=== PATIENT | female | born 1995 | race Caucasian/White ===

== ENCOUNTER 2023-04-29 13:25 | Emergency (ER) | payer SELFPAY ==
[2023-04-29 14:33] VITALS: BP 125/62; PULSE 91; RESP 19; TEMP 36.6; O2SAT 99; BMI 26.2
--- NOTE | 2023-04-29 14:49 | ECG_ITS ---
Test Reason : HAND NUMBNESS Blood Pressure : / mmHG Vent. Rate : 082 BPM Atrial Rate : 082 BPM P-R Int : 142 ms QRS Dur : 080 ms QT Int : 372 ms P-R-T Axes : 066 047 041 degrees QTc Int : 434 ms Normal sinus rhythm with sinus arrhythmia Possible Left atrial enlargement RSR' or QR pattern in V1 suggests right ventricular conduction delay Abnormal ECG No previous ECGs available Referred By: Cecilia Crews Electronically Signed By:YEVGENIY PEREZ MD
[2023-04-29 15:46] LABS: MANUAL DIFF FLAG NO
[2023-04-29 15:49] LABS: Basophils Percent Auto 0.7 % (0-2); Eosinophils Percent Auto 0.3 % (0-4); Hematocrit 40.7 % (37.0-47.0); Hemoglobin 13.7 g/dl (12.0-16.0); Imm Gran Abs Auto 0.01 X10*3/uL (0.00-0.03); Imm Gran Pct Auto 0.2 % (0.0-0.4); Lymphocytes Absolute Auto 1.3 X10*3/uL (1.2-4.9); Lymphocytes Percent Auto 22.6 % (20-40); Mean Corpuscular HGB Conc 33.7 g/dl (31.0-35.0); Mean Corpuscular Hemoglobin 29.7 pg (27.0-33.0); Mean Corpuscular Volume 88.1 fL (80.0-98.0); Mean Platelet Volume 9.9 fL (9.4-12.3); Monocytes Absolute Auto 0.3 X10*3/uL (0.1-1.2); Monocytes Percent Auto 4.6 % (2-11); Neutrophils Absolute Auto 4.3 x10*3/uL (2.0-8.3); Neutrophils Percent Auto 71.6 % (45-73); Platelet Count 288 X10*3/uL (160-400); Red Blood Count 4.62 X10*6/uL (4.20-5.50); Red Cell Distribution Width 12.4 % (11.0-16.0); White Blood Count 5.9 X10*3/uL (4.8-10.8)
[2023-04-29 16:09] LABS: Alanine Aminotransferase 9 U/L (0-31); Albumin Level 4.8 g/dL (3.5-5.0); Alkaline Phosphatase 41 U/L (39-117); Anion Gap 15 (12-20); Aspartate Amino Transferase 16 U/L (5-31); Bilirubin Direct 0.1 mg/dL (0.0-0.5); Bilirubin Total 0.4 mg/dL (0.0-1.0); Blood Urea Nitrogen 11 mg/dL (9-16); Carbon Dioxide 21 mmol/L (22-29); Chloride 109 mmol/L (96-108); Creatinine Clr Calc Pharmacy 95.4; Estimated Glomerular Filt Rate > 60; Glucose Random 109 mg/dL (60-115); Magnesium 2.3 mg/dL (1.6-2.6); Potassium 4.1 mmol/L (3.3-5.1); Sodium 141 mmol/L (135-145); Total Protein 7.5 g/dL (6.5-8.0)
[2023-04-29 16:24] LABS: TSH reflex Free T4 0.98 uIU/mL (0.32-4.0)
[2023-04-29 19:19] VITALS: BP 135/68; PULSE 86; RESP 16; TEMP 36.7; O2SAT 98
[2023-04-29 22:25] VITALS: BP 114/67; PULSE 56; RESP 14; TEMP 36.8; O2SAT 100
--- NOTE | 2023-04-29 22:28 | ED_ITS ---
HPI - General Adult General Chief complaint: General Medical Stated complaint: Hand Arm Numbness No Injury Time Seen by Provider: 04/29/23 21:07 Source: patient Mode of arrival: ambulatory History of Present Illness HPI narrative: 27-year-old female who presents with onset of all of the fingers of her left hand being numb on , this is not been associated with any fever/chills/trauma/redness or swelling and she denies any IVDA. Patient states that since the numbness has progressed in in ascending manner up through her forearm and she reports it is now at her elbow, she then states that associated with this is some mild weakness and decreased motor function. She states that on Thursday she began having the numbness in her left toes which has now progressed in an ascending matter up to the knee level to the point that she feels like her leg is going to give out if she is walking up and down stairs. Patient denies any use of alcohol or other medical problems and does not take any prescribed medications at this time. She denies any family history of neurologic disorders and denies any viral illnesses within the past month. She denies any bowel or bladder dysfunction or numbness within the groin area. Patient states that she has also had some numbness that she notes to the left side of her face that started today and also describes some perioral tingling but denies any visual changes. She does not endorse that she has had the toe numbness approximately 1 year ago but then it spontaneously resolved. Related Data Allergies Allergy/AdvReac Type Severity Reaction Status Date / Time No Known Allergies Allergy Verified 04/29/23 14:30 Review of Systems 2 Review of Systems: Pertinent positives and negatives as stated in HPI [facility] Past Medical History Source: nursing notes reviewed Social History Social History Advance Directives: No Advance Directives Information Provided: No Physical Exam ED Vital Signs: Vital Signs - 24 hr 04/29/23 14:33 04/29/23 19:19 04/29/23 22:25 Temperature 98 F 98.0 F 98.2 F Pulse Rate 91 86 56 Respiratory Rate 19 16 14 Blood Pressure 125/62 135/68 114/67 Pulse Oximetry 99 98 100 Oxygen Delivery Method Room Air Room Air Room Air BMI result Body Mass Index 26.2 VITAL SIGNS: Reviewed. GENERAL: Well developed, well nourished, in no acute distress. HEAD: Normocephalic/atraumatic EYES: PERRLA, EOMI intact without pain, no nystagmus/pallor/icterus noted EARS: Ext canals without abnormality, TMs non-bulging and non-erythematous NOSE: Nares patent bilateral OROPHARYNX: no oral lesions noted, posterior pharynx clear and non-erythematous without noted tonsillar enlargement/erythema/exudates NECK: Supple, no adenopathy LUNGS: Normal breath sounds. No adventitious sounds or accessory muscle use. SpO2<100> CARDIOVASCULAR: Regular rate and rhythm without noted murmurs ABDOMEN: Soft, non-tender, non-distended with bowel sounds. MUSCULOSKELETAL: No tenderness, deformities, or effusions noted on gross inspection. EXTREMITIES: No cyanosis, clubbing or edema. There is no noted erythema or induration to either the left lower or left upper extremity. There are no noted deformities or evidence of any skin breaks, there are no color changes to either extremity, they are both warm with palpable pulses and good capillary refill. There is full range of motion at all joints. There is no swelling. SKIN: Inspection of the skin reveals no rashes NEUROLOGIC: Alert and oriented x 4. Strength and sensation to light touch were grossly intact x 4, no facial asymmetry, DTRs are brisk and intact and symmetrical, left hand asphalt blender was noted to be less than right hand asphalt blender, cranial nerves 2-12 are grossly intact. Medical Decision Making Medical Decision Making MDM Narrative: 27-year-old female with history and clinical presentation, DDX: Viral illness, anxiety, MS. There is no discrete dermatomal level to suggest a radiculopathy and the sock and glove description that patient provides could suggest some form of other neuropathy but the timing and description that patient has provided is inconsistent with a classic Guillain-[place]/ALS. I reviewed all investigations and hematologic indices are negative for any leukocytosis/left shift, there is no anemia or thrombocytopenia, ESR is negligible. Chemistry indices are negative for LIANG and there is no electrolyte or liver enzyme abnormalities. CRP is negligible, procalcitonin is undetectable, TSH is within normal limits. The absence of elevated inflammatory markers or any derangements and in the lab work with intact DTRs it is difficult for me to invoke an acute neurologic emergency. There is no evidence to suggest a cauda equina. I will provide the patient with a referral to Neurology and instruct her to call 1st thing in the morning to see if she can be further evaluated [place] [facility] There is no indication for acute MRI evaluation. Differential Diagnosis Differential Diagnoses: The differential diagnosis associated with the presentation includes Please see the discussion above Admission/Observation Consideration of admission/observation: Escalation of care including admission/observation considered Please see the discussion above Lab Data MDM Lab Attestation statement: I reviewed the patient's lab results. Please see the discussion above 04/29/23 15:38 04/29/23 15:38 Labs: Lab Results 04/29/23 04/29/23 Range/Units 15:38 22:44 WBC 5.9 (4.8-10.8) X10*3/uL RBC 4.62 (4.20-5.50) X10*6/uL Hgb 13.7 (12.0-16.0) g/dl Hct 40.7 (37.0-47.0) % MCV 88.1 (80.0-98.0) fL MCH 29.7 (27.0-33.0) pg MCHC 33.7 (31.0-35.0) g/dl RDW 12.4 (11.0-16.0) % Plt Count 288 (160-400) X10*3/uL MPV 9.9 (9.4-12.3) fL Immature Gran % (Auto) 0.2 (0.0-0.4) % Neut % (Auto) 71.6 (45-73) % Lymph % (Auto) 22.6 (20-40) % Toole % (Auto) 4.6 (2-11) % Eos % (Auto) 0.3 (0-4) % Baso % (Auto) 0.7 (0-2) % Lymph # (Auto) 1.3 (1.2-4.9) X10*3/uL Toole # (Auto) 0.3 (0.1-1.2) X10*3/uL Eos # (Auto) 0.0 (0.0-0.4) X10*3/uL Baso # (Auto) 0.0 (0.0-0.2) X10*3/uL Abs Immat Gran (auto) 0.01 (0.00-0.03) X10*3/uL Absolute Neuts (auto) 4.3 (2.0-8.3) x10*3/uL Absolute Nucleated RBC 0.000 (0.0-0.012) X10*3/uL Nucleated RBC % (auto) 0.0 (0.0-0.2) /100WBC ESR 2 (0-20) MM/HR Sodium 141 (135-145) mmol/L Potassium 4.1 (3.3-5.1) mmol/L Chloride 109 H (96-108) mmol/L Carbon Dioxide 21 L (22-29) mmol/L Anion Gap 15 (12-20) BUN 11 (9-16) mg/dL Creatinine 0.77 (0.5-1.4) mg/dL Estim Creat Clear Calc 95.4 Estimated GFR > 60 Random Glucose 109 (60-115) mg/dL Calcium 10.0 (8.4-10.2) mg/dL Magnesium 2.3 (1.6-2.6) mg/dL Total Bilirubin 0.4 (0.0-1.0) mg/dL Direct Bilirubin 0.1 (0.0-0.5) mg/dL AST 16 (5-31) U/L ALT 9 (0-31) U/L Alkaline Phosphatase 41 (39-117) U/L C-Reactive Protein 0.10 (< or = 0.50) mg/dL Total Protein 7.5 (6.5-8.0) g/dL Albumin 4.8 (3.5-5.0) g/dL Procalcitonin < 0.02 ng/mL TSH 0.98 (0.32-4.0) uIU/mL Urine Color Yellow Urine Appearance Clear Urine pH 5.5 (5.0-9.0) Ur Specific Agenda 1.020 (1.005-1.025) Urine Protein Negative (Neg-Trace) mg/dL Urine Glucose (UA) Negative (Negative) mg/dL Urine Ketones 15 (Negative) mg/dL Urine Blood Moderate (2+) H (Negative) Urine Nitrite Negative (Negative) Ur Leukocyte Esterase Negative (Negative) Urine RBC 11-20 H (0-2) /HPF Urine WBC 0-5 (0-5) /HPF Ur Squamous Epith Cells 0-2 (0-2) /HPF Urine Bacteria None Seen (None Seen) Hyaline Casts 0-2 (0-2) /LPF Independent Interpretation I performed an independent interpretation of an: EKG Interpretation: Normal sinus rhythm, HR-82, no STEMI, GA/QRS/QTC is within normal limits. Discharge Plan Discharge Clinical Impression: Peripheral neuropathy Patient Disposition: Home, Self-Care Instructions: Peripheral Neuropathy (ED) Additional Instructions: 1. You have been provided with a referral for Neurology and should call the office 1st thing in the morning. I have sent the note for this visit to the office of the neurologist. 2. You will need to establish a primary care provider at your earliest convenience. Return to the ER for any worsening of your symptoms. Referrals: Rommel Jiang MD [Physician] -
[2023-04-29 22:35] LABS: Erythrocyte Sedimentation Rate 2 MM/HR (0-20)
[2023-04-29 22:37] LABS: Procalcitonin < 0.02 ng/mL
[2023-04-29 22:52] LABS: Appearance Urine Clear; Color Urine Yellow; Glucose Urine UA Negative (Negative); Leukocyte Esterase Urine Negative (Negative); Nitrite Urine Negative (Negative); PH 5.5 (5.0-9.0); UMIC TRIGGER UACC YES; Urine Blood Moderate (2+) (Negative); Urine Ketones 15 mg/dL (Negative); Urine Protein Negative (Neg-Trace)
[2023-04-29 22:54] LABS: Bacteria Urine None Seen (None Seen); Hyaline Casts Urine 0-2 /LPF (0-2); Squamous Epithelial Cell Urine 0-2 /HPF (0-2); WBC Urine 0-5 /HPF (0-5)
== END 2023-04-30 00:06 | disposition home or self-care (01) ==
PROVIDERS: Physician Assistant Medical; Emergency Provider Student in an Organized Health Care Education/Training Program
DX: G62.9 Polyneuropathy, unspecified (principal); R53.1 Weakness
CPT/HCPCS: 36415; 80048; 80076; 81001; 83735; 84145; 84443; 85025; 85652; 86140; 93005; 99283; 99284